=== PATIENT | female | born 1980 | race Hispanic/Latino ===

== ENCOUNTER 2017-02-10 10:53 | Observation (INO) | payer OTHER ==
[2017-02-10 11:02] VITALS: BMI 20.6
[2017-02-10 12:03] LABS: BASO % 0.1 % (0.0-2.0); HEMATOCRIT 33.2 % (34.0-47.0); LYMPH # 1.7 K/uL (1.0-4.3); LYMPH % 10.3 % (20.0-40.0); MEAN CELL VOLUME 95.8 fl (81.0-99.0); MEAN CORPUSCULAR HEMOGLOBIN 31.7 pg (27.0-31.0); MEAN CORPUSCULAR HGB CONC 33.1 g/dL (33.0-37.0); MONO # 1.2 K/uL (0.0-0.8); MONO % 7.4 % (0.0-10.0); NEUT # 13.5 K/uL (1.8-7.0); NEUT % 82.2 % (50.0-75.0); RED CELL DISTRIBUTION WIDTH 11.8 % (11.5-14.5); WHITE BLOOD COUNT 16.5 K/uL (4.8-10.8)
[2017-02-10 12:06] LABS: BLOOD UREA NITROGEN 12 mg/dl (7-17); CARBON DIOXIDE 24 mmol/L (22-30); CHLORIDE 103 mmol/L (98-107); GFR AFRICAN-AMERICAN > 60; GLUCOSE,RANDOM 143 mg/dL (65-105); POTASSIUM 3.8 MMOL/L (3.6-5.0); SODIUM 140 mmol/l (132-148)
[2017-02-10] MEDS ORDERED: Lidocaine 1% Inj (20ml) ONE (12:59)
--- NOTE | 2017-02-10 12:59 | ED PDOC ---
HPI: General Adult Time Seen by Provider: 02/10/17 11:08 Chief Complaint (Nursing): Female Genitourinary Chief Complaint (Provider): vaginal bleeding History Per: Patient History/Exam Limitations: no limitations Additional Complaint(s): 36yo female was having sexual intercourse last night when she began experiencing vaginal pain. After sex she went to the bathroom and experienced bleeding with clots. She had pressure in the lower abdomen which resolved after bleeding ended. States she had vasovagal symptoms and sat on the floor but did fall, lose consciousness or hit her head. States she has some vaginal pain. Last menstrual period was on 01/29/17, last OB appointment was normal. PMD: Denice Past Medical History Reviewed: Historical Data, Nursing Documentation, Vital Signs Vital Signs: Last Vital Signs Temp 97 F L 02/10/17 11:01 Pulse 103 H 02/10/17 14:52 Resp 18 02/10/17 14:52 BP 90/57 L 02/10/17 14:52 Pulse Ox 97 02/10/17 14:52 - Medical History PMH: No Chronic Diseases - Surgical History Surgical History: No Surg Hx - Family History Family History: States: Unknown Family Hx - Living Arrangements Living Arrangements: With Family - Immunization History Hx Tetanus Toxoid Vaccination: No Hx Influenza Vaccination: No Hx Pneumococcal Vaccination: No - Home Medications Home Medications: Ambulatory Orders Medication Instructions Recorded Acetaminophen with Codeine 1 each PO Q4 PRN #18 tablet 04/07/16 [Tylenol with Codeine #3 Tablet] - Allergies Allergies/Adverse Reactions: Allergies Allergy/AdvReac Type Severity Reaction Status Date / Time cephalexin monohydrate Allergy VOMITING Verified 04/07/16 12:14 [From Keflex] Review of Systems ROS Statement: Except As Marked, All Systems Reviewed And Found Negative Genitourinary Female: Positive for: Vaginal Bleeding, Other (vaginal pain) Physical Exam - Reviewed Nursing Documentation Reviewed: Yes Vital Signs Reviewed: Yes - Physical Exam Appears: Positive for: Well, Non-toxic, No Acute Distress Head Exam: Positive for: ATRAUMATIC, NORMAL INSPECTION, NORMOCEPHALIC Skin: Positive for: Warm, Dry Eye Exam: Positive for: EOMI, PERRL Cardiovascular/Chest: Positive for: Regular Rate, Rhythm Respiratory: Positive for: Normal Breath Sounds. Negative for: Rales, Rhonchi, Wheezing Gastrointestinal/Abdominal: Positive for: Normal Exam, Soft. Negative for: Tenderness Pelvic Exam: Positive for: Other (Small tear to superior aspect of external labia. Non bleeding. On speculum insertion, lots of clots. Used sterile gauze and alligator clamps to remove all clots. After all clots removed she was having heavy active bleeding from left vaginal wall from laceration extending from beginning of vagina to end. ) Extremity: Positive for: Normal ROM, Capillary Refill (normal ). Negative for: Tenderness Neurologic/Psych: Positive for: Alert, Oriented (x3), Gait (normal ). Negative for: Motor/Sensory Deficits Comments: RN Tonya Salmon present as radio adjuster. - Laboratory Results Result Diagrams: 02/10/17 11:45 02/10/17 11:45 - ECG O2 Sat by Pulse Oximetry: 100 (RA) Pulse Ox Interpretation: Normal Medical Decision Making Medical Decision Makin36 y/o with vaginal pain and bleeding after sex - cbc, bmp, hgb 11 negative pelvic exam performed see PE given PE finding call placed to [facility] rehabilitation consultant Case discussed with Dr. Orellana OB who will evaluate the patient at the bedside. 1300 Dr. Orellana HOTEL OFFICE MANAGER is at bedside. he cannot perform suturing given amount of bleeding. Dr Orellana tenoner operator will take the patient to the OR. Type & Screen, IV Fluids ordered. patient to be admitted to OR for surgical intervention. Disposition - Clinical Impression Clinical Impression: Vaginal laceration - Patient ED Disposition Is Patient to be Admitted: Yes (to OR) Counseled Patient/Family Regarding: Studies Performed, Diagnosis - Disposition Disposition Time: 13:18 Condition: GUARDED Additional Comments - Additional Comments Additional Comments: Scribe Attestation Documented by Eliazar Pierre, acting as a scribe for Douglas Reilly PA-C. Provider Scribe Attestation All medical record entries made by the Scribe were at my direction and personally dictated by me. I have reviewed the chart and agree that the record accurately reflects my personal performance of the history, physical exam, medical decision making, and the department course for this patient. I have also personally directed, reviewed, and agree with the discharge instructions and disposition.
[2017-02-10] MEDS ORDERED: Sodium Chloride 0.9% 1,000 ML IV STA (13:16)
[2017-02-10] MEDS ORDERED: Propofol 10 mg/ml Inj (20 ML) ONE (14:24)
[2017-02-10] MEDS ORDERED: Midazolam 2 MG/2 ML VIAL ONE (14:25)
[2017-02-10] MEDS ORDERED: Succinylcholine 200 mg/10 ml Inj IV ONE (14:27)
--- NOTE | 2017-02-10 14:27 | CP.PCM.HP ---
History of Present Illness - History of Present Illness History of Present Illness: 36-year-old female presents to the emergency department with complaints of painful episode of intercourse with her partner last night and heavy vaginal bleeding. Patient reports having heavy vaginal bleeding since incident last night. Patient denies any chest pain or shortness of breath, dizziness, syncope , dyspnea. Present on Admission - Present on Admission Any Indicators Present on Admission: No History of DVT/PE: No History of Uncontrolled Diabetes: No Urinary Catheter: No Decubitus Ulcer Present: No Past Patient History - Infectious Disease Hx of Infectious Diseases: None - Past Medical History & Family History Past Medical History?: No - Past Social History Smoking Status: Never Smoked - PSYCHIATRIC Hx Substance Use: No - SURGICAL HISTORY Other/Comment: Rhinoplasty - ANESTHESIA Hx Anesthesia: Yes Hx Anesthesia Reactions: No Meds Allergies/Adverse Reactions: Allergies Allergy/AdvReac Type Severity Reaction Status Date / Time cephalexin monohydrate Allergy VOMITING Verified 04/07/16 12:14 [From Keflex] Physical Exam - Constitutional Appears: Well - Head Exam Head Exam: ATRAUMATIC - Eye Exam Eye Exam: Normal appearance - ENT Exam ENT Exam: Mucous Membranes Moist - Respiratory Exam Respiratory Exam: Clear to Auscultation Bilateral, NORMAL BREATHING PATTERN - Cardiovascular Exam Cardiovascular Exam: REGULAR RHYTHM - Exam Additional comments: Positive large amount of blood clots within the vagina. Positive laceration and right sulcal area in posterior vagina. Results - Vital Signs Recent Vital Signs: Last Vital Signs Temp 97 F L 02/10/17 11:01 Pulse 127 H 02/10/17 11:01 Resp BP 126/83 02/10/17 11:01 Pulse Ox 100 02/10/17 14:06 - Labs Result Diagrams: 02/10/17 11:45 02/10/17 11:45 Labs: Laboratory Results - last 24 hr 02/10/17 13:40 BBK History Checked No verified bt Assessment & Plan - Assessment and Plan (Free Text) Assessment: Right sulcal vaginal laceration. Plan: Discussed with patient the need for exam under anesthesia due to extent and location of laceration. Patient consented for exam under anesthesia and vaginal laceration repair. I discussed with patient risks, benefits, alternatives of this procedure. All patient questions answered. Anesthesia and or notified. Patient stable at this time. I instructed the emergency room department to place IV and send type and screen. - Date & Time Date: 02/10/17 Time: 14:27
[2017-02-10] MEDS ORDERED: Lactated Ringer's 1,000 ML IV ONE ×2 (14:35→15:15)
[2017-02-10] MEDS ORDERED: ePHEDrine 50 mg/ml Inj ONE (14:56)
--- NOTE | 2017-02-10 15:18 | PCM.SURG1 ---
Surgeon's Initial Post Op Note - Surgeon's Notes Surgeon: Esteban Lumber Material Handler: N/A Type of Anesthesia: General Endo Anesthesia Administered By: Garrett Pre-Operative Diagnosis: Vaginal laceration Operative Findings: Right Sulcal vaginal laceration. Post-Operative Diagnosis: Same Operation Performed: EUA, Vaginal laceration repair Specimen/Specimens Removed: None Estimated Blood Loss: EBL {In ML}: 600 Blood Products Given: N/A Drains Used: No Drains Post-Op Condition: Good Date of Surgery/Procedure: 02/10/17 Time of Surgery/Procedure: 15:18
[2017-02-10] MEDS: HYDROmorphone 0.5 mg/0.5 ml ISec ONE ×2 (15:26→15:33)
[2017-02-10] MEDS ORDERED: HYDROmorphone 0.5 mg/0.5 ml ISec IVP PRN ×2 (15:27→15:46)
[2017-02-10] MEDS ORDERED: Oxycodone/Acetaminophen 5/325 mg Tab PO PRN (15:48)
--- NOTE | 2017-02-10 15:59 | OP ---
PROCEDURE DATE: 02/10/2017 PREOPERATIVE DIAGNOSES: A 36-year-old female with a vaginal laceration [facility] [place] The patient with acute vaginal bleeding and deep vaginal laceration on exam. POSTOPERATIVE DIAGNOSES: Right sulcul vaginal laceration. OPERATION PERFORMED: Exam under anesthesia, vaginal laceration repair. SURGEON: Anastacio Orellana MD ANESTHESIOLOGIST: Dr. Tucker. ANESTHESIA: General. COMPLICATIONS: None. URINE OUTPUT: 600 mL. FLUIDS: 800 mL of lactated ringers. COMPLICATIONS: None. PROCEDURE: The patient was taken to the operating room where general anesthesia was found to be adeq uate. The patient was prepped and draped in a normal sterile fashion in the dorsal lithotomy positio n. A Stern retractor was placed at the posterior aspect of the vagina. A Osmel retractor was placed at the anterior surface of the vagina. The vagina was completely visualized and the above findings noted. The sulcul vaginal laceration was repaired with 0 Vicryl in a running, locked fashion. After repair of laceration, laceration site was found to be hemostatic. All instruments were removed from the patient. The patient tolerated the procedure well. All sponge , lap, and needle counts were correct x 2. The patient was taken to the recovery room awake and in s table condition. There were no complications. Anastacio Orellana MD cc: [phone] TT: 02/10/2017 15:58:38 chaz
[2017-02-10 19:12] LABS: HEMATOCRIT 20.4 % (34.0-47.0); MEAN CELL VOLUME 96.8 fl (81.0-99.0); MEAN CORPUSCULAR HEMOGLOBIN 31.5 pg (27.0-31.0); MEAN CORPUSCULAR HGB CONC 32.5 g/dL (33.0-37.0); MEAN PLATELET VOLUME 8.1 fl (7.2-11.7); RED CELL DISTRIBUTION WIDTH 12.2 % (11.5-14.5); WHITE BLOOD COUNT 12.8 K/uL (4.8-10.8)
--- NOTE | 2017-02-10 19:35 | CP.PCM.PN ---
Subjective - Date & Time of Evaluation Date of Evaluation: 02/10/17 Time of Evaluation: 19:15 - Subjective Subjective: Pt felt dizziness when she went to go to the bathroom. Objective - Vital Signs/Intake and Output Vital Signs (last 24 hours): Temp Pulse Resp BP Pulse Ox 97.6 F 78 17 86/52 L 99 02/10/17 17:09 02/10/17 17:48 02/10/17 17:48 02/10/17 17:48 02/10/17 17:48 Intake and Output: 02/10/17 02/11/17 18:59 06:59 Intake Total 1300 Balance 1300 - Medications Medications: Current Medications Lactated Ringer's (Lactated Ringer's) 1,000 mls @ 75 mls/hr IV .[id number] HEMALATHA Stop: 02/11/17 09:04 Ibuprofen (Motrin Tab) 600 mg PO Q6 PRN PRN Reason: Pain, moderate (4-7) Oxycodone/Acetaminophen (Percocet 5/325 Mg Tab) 1 tab PO Q6 PRN PRN Reason: Pain, severe (8-10) Stop: 02/13/17 15:49 - Labs Labs: 02/10/17 19:00 Previous H/H - Head Exam Head Exam: NORMAL INSPECTION - Skin Additional comments: Pale lip; pale sclera; slow capillary refill Assessment and Plan - Assessment and Plan (Free Text) Assessment: S/P repair of vaginal laceration Severe anemia secondary to blood loss Plan: condition discussed with patient ... and transfusion risks/complications discussed ... informed consent obtained Will transfuse 2u PRBC and check CBC in AM
[2017-02-10] MEDS ORDERED: Lactated Ringer's 1,000 ML IV SCH (19:45)
[2017-02-11 02:09] VITALS: PULSE 88; O2SAT 99
[2017-02-11 07:57] VITALS: RESP 16; TEMP 99
[2017-02-11 10:13] LABS: HEMATOCRIT 26.1 % (34.0-47.0); MEAN CELL VOLUME 92.6 fl (81.0-99.0); MEAN CORPUSCULAR HEMOGLOBIN 31.5 pg (27.0-31.0); MEAN CORPUSCULAR HGB CONC 34.1 g/dL (33.0-37.0); RED CELL DISTRIBUTION WIDTH 13.7 % (11.5-14.5); WHITE BLOOD COUNT 8.9 K/uL (4.8-10.8)
[2017-02-11 10:32] VITALS: BP 101/51
--- NOTE | 2017-02-11 11:10 | CP.PCM.PN ---
<Elda Parham - Last Filed: 02/11/17 11:18> Subjective - Date & Time of Evaluation Date of Evaluation: 02/11/17 Time of Evaluation: 07:40 - Subjective Subjective: Patient was seen and examined at bedside this morning, she was lying in bed comfortable. Patient is feeling well, and denies chest pain, SOB, dizziness, chills, or other complains. She received the 2 units of PRBCs, and is asymptomatic after transfusion. Objective - Vital Signs/Intake and Output Vital Signs (last 24 hours): Temp Pulse Resp BP Pulse Ox 99 F 88 16 101/51 L 99 02/11/17 07:56 02/11/17 07:56 02/11/17 07:56 02/11/17 10:31 02/11/17 07:56 - Medications Medications: Current Medications Ibuprofen (Motrin Tab) 600 mg PO Q6 PRN PRN Reason: Pain, moderate (4-7) Oxycodone/Acetaminophen (Percocet 5/325 Mg Tab) 1 tab PO Q6 PRN PRN Reason: Pain, severe (8-10) Stop: 02/13/17 15:49 - Labs Labs: 02/11/17 09:00 - Constitutional Appears: No Acute Distress - Eye Exam Eye Exam: Normal appearance - ENT Exam ENT Exam: Mucous Membranes Moist - Respiratory Exam Respiratory Exam: Clear to Ausculation Bilateral - Cardiovascular Exam Cardiovascular Exam: REGULAR RHYTHM, +S1, +S2 - GI/Abdominal Exam GI & Abdominal Exam: Soft. absent: Distended, Guarding, Rigid, Tenderness - Extremities Exam Extremities Exam: Normal Inspection. absent: Calf Tenderness, Pedal Edema - Neurological Exam Neurological Exam: Alert, Awake, Oriented x3 - Psychiatric Exam Psychiatric exam: Normal Affect, Normal Mood - Skin Skin Exam: Dry, Intact, Pallor Assessment and Plan - Assessment and Plan (Free Text) Assessment: 36 y/o F with anemia most likely secondary to acute blood loss from vaginal laceration, now s/p repair and 2 units of PRBCs transfusion. Plan: 1. Anemia most likely secondary to acute blood loss due to vaginal laceration. -S/P OR repair. -S/P Transfusion of 2 units of PRBCs -Improving, asymptomatic, stable vital signs -Post -transfusion CBC showed: H/H: 8.9/26.1. -Consider discharge today. -Case discussed with Dr. Burger. <Trisha Burger S - Last Filed: 02/12/17 07:41> Subjective - Date & Time of Evaluation Date of Evaluation: 02/11/17 Time of Evaluation: 09:30 - Subjective Subjective: Pt seen & examined by me. Agree with Dr. Salazar's note with following additions: s: no c/o. denies syncope, palpitations when oob and ambulating. denies bleeding i: s/p vaginal laceration repair Anemia due to acute blood loss p: d/c home today nothing in vagina x6wks rx Fe qd d/u with dr. estrella in 1-2wks. Objective - Vital Signs/Intake and Output Vital Signs (last 24 hours): Temp Pulse Resp BP Pulse Ox 99 F 88 16 101/51 L 99 02/11/17 07:56 02/11/17 07:56 02/11/17 07:56 02/11/17 10:31 02/11/17 07:56 - Labs Labs: 02/11/17 09:00
--- NOTE | 2017-02-11 17:04 | CP.PCM.DIS ---
<Elda Parham - Last Filed: 02/11/17 16:59> Provider - Provider Date of Admission: 02/10/17 13:18 Attending physician: Anastacio Orellana MD Time Spent in preparation of Discharge (in minutes): 30 Diagnosis - Discharge Diagnosis (1) Vaginal laceration Status: Acute Priority: Medium Diagnosis Date: 02/10/17 Comment: Right Sulcal vaginal laceration S/P repair under anesthesia. Patient tolerated procedure. F/U as outpatient with [employer] doctor in 2-3 days after discharge. Instructed on avoid sexual intercourse and nothing by vagina for 6 weeks. (2) Acute blood loss anemia Status: Acute Priority: High Diagnosis Date: 02/10/17 Comment: Most likely secondary to vaginal laceration. Patient received 2 units of PRBCs during admission. Patient tolerated transfusion well. No signs/ symptoms of post-transfusion reaction noted and/or reported. H/H post transfusion improved from 6.6/20.4 to 8.9/26.1 Hospital Course - Lab Results Lab Results: Most Recent Lab Values WBC 8.9 K/uL (4.8-10.8) 02/11/17 09:00 RBC 2.82 Mil/uL (3.80-5.20) L 02/11/17 09:00 Hgb 8.9 g/dL (12.0-16.0) L D 02/11/17 09:00 Hct 26.1 % (34.0-47.0) L 02/11/17 09:00 MCV 92.6 fl (81.0-99.0) D 02/11/17 09:00 MCH 31.5 pg (27.0-31.0) H 02/11/17 09:00 MCHC 34.1 g/dL (33.0-37.0) 02/11/17 09:00 RDW 13.7 % (11.5-14.5) 02/11/17 09:00 Plt Count 109 K/uL (130-400) L D 02/11/17 09:00 MPV 8.1 fl (7.2-11.7) 02/10/17 19:00 Neut % (Auto) 82.2 % (50.0-75.0) H 02/10/17 11:45 Lymph % (Auto) 10.3 % (20.0-40.0) L 02/10/17 11:45 [place] % (Auto) 7.4 % (0.0-10.0) 02/10/17 11:45 Eos % (Auto) 0.0 % (0.0-4.0) 02/10/17 11:45 Baso % (Auto) 0.1 % (0.0-2.0) 02/10/17 11:45 Neut # 13.5 K/uL (1.8-7.0) H 02/10/17 11:45 Lymph # 1.7 K/uL (1.0-4.3) 02/10/17 11:45 [place] # 1.2 K/uL (0.0-0.8) H 02/10/17 11:45 Eos # 0.0 K/uL (0.0-0.7) 02/10/17 11:45 Baso # 0.0 K/uL (0.0-0.2) 02/10/17 11:45 Sodium 140 mmol/l (132-148) 02/10/17 11:45 Potassium 3.8 MMOL/L (3.6-5.0) 02/10/17 11:45 Chloride 103 mmol/L (98-107) 02/10/17 11:45 Carbon Dioxide 24 mmol/L (22-30) 02/10/17 11:45 Anion Gap 17 (10-20) 02/10/17 11:45 BUN 12 mg/dl (7-17) 02/10/17 11:45 Creatinine 0.6 mg/dL (0.7-1.2) L 02/10/17 11:45 Est GFR ( Amer) > 60 02/10/17 11:45 Est GFR (Non-Af Amer) > 60 02/10/17 11:45 Random Glucose 143 mg/dL (65-105) H 02/10/17 11:45 Calcium 9.0 mg/dL (8.4-10.2) 02/10/17 11:45 Serum HCG, Qual Negative (NEGATIVE) 02/10/17 11:45 Blood Type O POSITIVE 02/10/17 13:40 Antibody Screen Negative 02/10/17 13:40 Crossmatch See Detail 02/10/17 13:40 BBK History Checked No verified bt 02/10/17 13:40 - Hospital Course Hospital Course: This is a 36-year-old female with no significant PMHx who presented yesterday to the emergency department with complaints of painful episode of intercourse with her partner the night before admission and heavy vaginal bleeding. Patient reported having heavy vaginal bleeding since incident ( sexual intercourse). Patient denies any other complains at the time of ED presentation. During 23 hours observation patient was taken to OR for exam under anesthesia and vaginal laceration repair. Patient tolerated procedure well. First CBC showed mild anemia with H/H of 11.0/33.2, but repeated CBC showed decreased H/H to 6.6/20.4 , and patient was complaining of dizziness. Patient was transfused with 2 units of PRBCs after informed consent was obtained. Patient tolerated transfusion well. Patient was seen and examined at bedside this morning, she was lying in bed comfortable. Patient is feeling well, and denies chest pain, SOB, dizziness , chills, or other complains. Vital sign are stable and patient is asymptomatic at this evaluation. She is stable to be discharge home on oral Iron supplementations twice a day, and will follow up with her [employer] doctor in 2-3 days. Patient was recommended to avoid sexual intercourse and nothing by vagina for 6 weeks. - Date & Time of H&P Date of H&P: 02/10/17 Time of H&P: 12:55 Discharge Exam - Head Exam Head Exam: NORMAL INSPECTION - ENT Exam ENT Exam: Mucous Membranes Moist - Respiratory Exam Respiratory Exam: Clear to PA & Lateral - Cardiovascular Exam Cardiovascular Exam: REGULAR RHYTHM, RRR, +S1, +S2. absent: Bradycardia, Tachycardia, Rubs, Systolic Murmur - GI/Abdominal Exam GI & Abdominal Exam: Normal Bowel Sounds, Soft. absent: Rigid, Tenderness - Extremities Exam Extremities exam: normal inspection - Neurological Exam Neurological exam: Alert, Oriented x3 - Psychiatric Exam Psychiatric exam: Normal Affect, Normal Mood - Skin Skin Exam: Dry, Intact, Pallor (improved after transfusion) Discharge Plan - Follow Up Plan Condition: STABLE Disposition: HOME/ ROUTINE Patient education suggested?: Yes Additional Instructions: -F/U as outpatient with [employer] doctor in 2-3 days. -Avoid sexual intercourse, nothing by vagina for 6 weeks. -Take Ferrous sulfate 325 mg 1 tab twice a day by mouth. -ER precautions provided. -No tub baths <Trisha Burger S - Last Filed: 02/12/17 07:42> Provider - Provider Date of Admission: 02/10/17 13:18 Attending physician: Anastacio Orellana MD Hospital Course - Lab Results Lab Results: Most Recent Lab Values WBC 8.9 K/uL (4.8-10.8) 02/11/17 09:00 RBC 2.82 Mil/uL (3.80-5.20) L 02/11/17 09:00 Hgb 8.9 g/dL (12.0-16.0) L D 02/11/17 09:00 Hct 26.1 % (34.0-47.0) L 02/11/17 09:00 MCV 92.6 fl (81.0-99.0) D 02/11/17 09:00 MCH 31.5 pg (27.0-31.0) H 02/11/17 09:00 MCHC 34.1 g/dL (33.0-37.0) 02/11/17 09:00 RDW 13.7 % (11.5-14.5) 02/11/17 09:00 Plt Count 109 K/uL (130-400) L D 02/11/17 09:00 MPV 8.1 fl (7.2-11.7) 02/10/17 19:00 Neut % (Auto) 82.2 % (50.0-75.0) H 02/10/17 11:45 Lymph % (Auto) 10.3 % (20.0-40.0) L 02/10/17 11:45 [place] % (Auto) 7.4 % (0.0-10.0) 02/10/17 11:45 Eos % (Auto) 0.0 % (0.0-4.0) 02/10/17 11:45 Baso % (Auto) 0.1 % (0.0-2.0) 02/10/17 11:45 Neut # 13.5 K/uL (1.8-7.0) H 02/10/17 11:45 Lymph # 1.7 K/uL (1.0-4.3) 02/10/17 11:45 [place] # 1.2 K/uL (0.0-0.8) H 02/10/17 11:45 Eos # 0.0 K/uL (0.0-0.7) 02/10/17 11:45 Baso # 0.0 K/uL (0.0-0.2) 02/10/17 11:45 Sodium 140 mmol/l (132-148) 02/10/17 11:45 Potassium 3.8 MMOL/L (3.6-5.0) 02/10/17 11:45 Chloride 103 mmol/L (98-107) 02/10/17 11:45 Carbon Dioxide 24 mmol/L (22-30) 02/10/17 11:45 Anion Gap 17 (10-20) 02/10/17 11:45 BUN 12 mg/dl (7-17) 02/10/17 11:45 Creatinine 0.6 mg/dL (0.7-1.2) L 02/10/17 11:45 Est GFR ( Amer) > 60 02/10/17 11:45 Est GFR (Non-Af Amer) > 60 02/10/17 11:45 Random Glucose 143 mg/dL (65-105) H 02/10/17 11:45 Calcium 9.0 mg/dL (8.4-10.2) 02/10/17 11:45 Serum HCG, Qual Negative (NEGATIVE) 02/10/17 11:45 Blood Type O POSITIVE 02/10/17 13:40 Antibody Screen Negative 02/10/17 13:40 Crossmatch See Detail 02/10/17 13:40 BBK History Checked No verified bt 02/10/17 13:40
== END 2017-02-11 14:23 | disposition home or self-care (01) ==
LOC: H.ER 10:53 → H.ERHOLD 13:18 → H.PEDS 16:53
PROVIDERS: ADMIT Obstetrics & Gynecology; ATTEND Obstetrics & Gynecology
DX: S31.41XA Laceration without foreign body of vagina and vulva, initial encounter (principal); D62 Acute posthemorrhagic anemia